=== PATIENT | male | born 1990 | race Caucasian/White ===

== ENCOUNTER 2017-02-28 18:00 | Emergency (ER) | payer OTHER ==
--- NOTE | ~2017-02-28 | CR111 ---
[facility]. [facility] A Service of [facility] RADIOLOGY TEXT RESULTS PATIENT: GEORGETTE VANCE LOCATION: SED : [birth year] UNIT #: [id number] AGE: [address]: David Connell MD SEX: M ORDER DR: [id number] [place] [id number] E MR#: [id number] Acc #: [id number] NAME: GEORGETTE VANCE : 1990 SEX: M STUDY DATE/TIME: 02/28/2017 19:03 UNIT: SED ROOM: STUDY DESCRIPTION: CR Finger 2 View 3rd Rt Attending Physician: David Connell M.D. Ordering Physician: Taye Tim M.D. MEDICAL IMAGING REPORT This report is preliminary unless electronic signature is present. EXAM Right third digit series 02/28/2017 INDICATIONS 26-year-old male with laceration injury of the finger opening a crystal doorknob today. Open wound and pain. TECHNIQUE 3 views. No comparisons. FINDINGS No acute fracture. Joint space is preserved. Adjacent to the middle phalanx of the third digit along its volar aspect there is a tiny radiopaque density measuring 1-2 mm. This may represent film screen artifact but given history of trauma a tiny retained opaque foreign body could present similarly. The examination is otherwise negative. Soft tissue swelling present. IMPRESSION 1. Soft tissue swelling about the PIP joint of the third digit. No acute fracture. 2. There is a tiny 1-2 mm subtle density adjacent to the volar aspect of the middle phalanx third digit which could represent a tiny retained opaque foreign body or simply represent artifact. 1. Dictated by... Edgard Ohara M.D. THIS IS AN ELECTRONICALLY VERIFIED REPORT Edgard Ohara M.D. at 03/01/2017 11:45 AM Aida [facility] A Service [facility] RADIOLOGY TEXT RESULTS PATIENT: GEORGETTE VANCE LOCATION: SED : 91 UNIT #: [id number] AGE: [address]: David Connell MD SEX: M ORDER DR: TD: 03/01/2017 07:25 JOB #: [id number] MEDICAL IMAGING REPORT Page 1 of 1
[2017-02-28 18:59] LABS: BASOPHIL# 0.1 X10e3 (0-0.3); BASOPHIL% 0.6 % (0-2.5); DIFF IND NO; EOSINOPHIL# 0.5 X10e3 (0-0.7); EOSINOPHIL% 3.3 % (0.0-7.0); HEMATOCRIT 45.8 % (38.0-50.0); HEMOGLOBIN 16.3 gm/dL (13.0-16.0); LYMPHOCYTE# 1.6 X10e3 (1.0-3.5); LYMPHOCYTE% 10.6 % (17.0-45.0); MEAN CELL VOLUME 88.9 FL (83-96); MEAN CORPUSCULAR HEMOGLOBIN 31.6 PG (28-34); MEAN CORPUSCULAR HGB CONC 35.5 g/dL (30-36); MEAN PLATELET VOLUME 8.4 FL (6.5-11.5); MONOCYTE% 6.7 % (3.0-12.0); NEUTROPHIL# 11.9 X10e3 (1.5-7.1); NEUTROPHIL% 78.8 % (40-75); PLATELET COUNT 205 X10e3 (140-420); RED BLOOD COUNT 5.15 X10e (3.90-5.60); RED CELL DISTRIBUTION WIDTH 12.8 % (11.0-15.5); WHITE BLOOD COUNT 15.1 X10e3 (4.0-10.5)
[2017-02-28 19:06] LABS: INR 1.1; PROTHROMBIN TIME (PATIENT) 12.4 SECONDS (9.5-12.4)
[2017-02-28 19:15] LABS: ALBUMIN SERUM 5.1 g/dL (3.5-5.0); ALKALINE PHOSPHATASE 61 U/L (32-92); ALT (SGPT) 36 U/L (10-40); AST (SGOT) 26 U/L (10-42); BILIRUBIN,TOTAL 0.6 mg/dL (0.2-2.0); BLOOD UREA NITROGEN 14 mg/dL (9-23); CALCIUM SERUM 10.1 mg/dL (8.4-10.2); CARBON DIOXIDE 25 mmol/L (22-31); CHLORIDE 107 mmol/L (100-111); GLOM FILT RATE Estimated 104.2 mL/min (>60); GLUCOSE FASTING 96 mg/dL (70-110); POTASSIUM 3.7 mmol/L (3.5-5.1); PROTEIN TOTAL SERUM 8.7 g/dL (6.0-8.3); SODIUM 139 mmol/L (135-145)
[2017-02-28 19:18] LABS: ALCOHOL BLOOD <5 mg/dL (0)
== END 2017-02-28 20:22 | disposition home or self-care (01) ==
LOC: SED 18:00
PROVIDERS: Emergency Medicine
DX: S66.122A Laceration of flexor muscle, fascia and tendon of right middle finger at wrist and hand level, initial encounter (principal); F17.210 Nicotine dependence, cigarettes, uncomplicated; W25.XXXA Contact with sharp glass, initial encounter
CPT/HCPCS: 36415; 73140; 80053; 85025; 85610; 96374; 96375; 99283; G0480; J2270; J2405